=== PATIENT | female | born 1935 | race Caucasian/White ===

== ENCOUNTER 2020-05-25 13:30 | Observation (INO) | payer MEDICARE, MEDICAID, SELFPAY ==
[2020-05-25] VITALS (33 sets, daily range): BP systolic 116–156; BP diastolic 60–104; PULSE 61–82; RESP 12–30; TEMP 36.2–36.4; O2SAT 94–100; BMI 25.7
--- NOTE | ~2020-05-25 | CT_ITS ---
EXAMINATION: CT brain wo con DATE: 05/25/2020 14:32 INDICATION: Altered mental status. TECHNIQUE: Computed tomography (CT) of the head was performed without intravenous contrast. The mA wa s adjusted according to patient size. Iterative reconstruction technique was employed. The dose-lengt h product was 605.33 mGy-cm. COMPARISON: Head CT 05/10/2017 FINDINGS: There is diffuse brain volume loss. 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 There are scattered areas of low attenuation in the cerebral white matter, which is within normal limits for t he patient's age. There is no intracranial hemorrhage, acute infarction, or abnormal intracranial mas s lesion. The ventricles are normal in size. The paranasal sinuses are clear. The mastoid air cells a re normal. There are likely changes of ocular lens replacement surgeries. IMPRESSION: 1. 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 Reviewed, dictated and finalized at location A.
--- NOTE | ~2020-05-25 | XR_ITS ---
EXAMINATION: XR chest 1V EXAM DATE: 05/25/2020 14:33 INDICATION: Transient alteration of awareness. TECHNIQUE: Portable AP frontal chest x-ray was obtained. Comparison is made to prior examination from 07/05/2013. FINDINGS: Sternotomy wires are present without findings to suggest sternal dehiscence. Cardiomegaly, new compared to previous examination. No confluent consolidation, pneumothorax or pleural effusion lester spected. There are mild bony degenerative changes. IMPRESSION: Cardiomegaly. Reviewed, dictated and finalized at location A. IMPRESSION: Cardiomegaly.
--- NOTE | 2020-05-25 14:01 | ED.AMS ---
HPI - Altered Mental Status General Chief Complaint: Altered Mental Status Stated Complaint: Altered Mental Status Time Seen by Provider: 05/25/20 13:37 Source: EMS Mode of arrival: EMS Limitations: altered mental status and dementia History of Present Illness HPI narrative: Patient is an 84-year-old female brought in by EMS due to altered mental status. Per EMS, according snf staff that the patient is more confused compared to her baseline. Patient is currently on oral antibiotics but EMS states that she has not been taking it for the past few days, spitting it up and was refusing to take, being treated for a urinary tract infection. Related Data Allergies Allergy/AdvReac Type Severity Reaction Status Date / Time No Known Allergies Allergy Unverified 12/04/19 09:33 Review of Systems Review of Systems: ROS unobtainable: Yes unobtainable due to mental status PMFSH Family History Family History Sibling Carcinoma of colon Family history of coronary artery disease Father Family history of lung cancer Social History Social History Smoking status: Never smoker Second hand tobacco smoke exposure: No Alcohol intake: current Exam Const: General: ill appearing Limitations: altered mental status (Lethargic) Other: Frail HENMT: Head: normal to inspection, normocephalic and atraumatic Ears: hearing grossly normal bilaterally, TM normal on the right and TM normal on the left General nose exam: Normal external nose present, Normal nares present and No nasal discharge present Face and sinus: normal facial exam Mouth: Yes Normal oral and palatal mucosa present, Yes lip normal, Yes tongue normal and Yes oropharynx normal Throat: posterior oropharynx normal, tonsils normal and uvula midline Eyes: General: appearance normal, both eyes and all related structures Pupils: Equal, round and reactive pupils present EOM: EOMs intact bilaterally Neck: Neck: normal visual inspection, full ROM, no lymphadenopathy and no meningeal signs Chest: Chest palpation & inspection: normal inspection of the chest Resp: Auscultation: clear to auscultation bilaterally, no crackles, no rales, no rhonchi and no wheezes Cardio: Rate: regular rate Rhythm: regular rhythm Heart sounds: Murmur heart sound present GI: Inspection: normal to inspection GI Palp: No abdominal tenderness, Yes Soft to palpation, No Tenderness to palpation present (GI), No Guarding due to palpation present (GI), No Rigid due to palpation and No Rebound tenderness present Auscultation: normal bowel sounds : General: Yes no CVA tenderness Back/Spine/Pelvis: Back: no CVA tenderness Skin: General skin exam: normal color, no rashes or lesions noted, elasticity normal and turgor normal Neuro: General: tone normal, moves all extremities, Normal light touch and pain sensation and no focal motor deficits Cranial nerves: Yes Equal, round and reactive pupils present Speech: No Abnormal speech present Sensory Exam: No Sensory deficit (Neuro) Other: Lethargic Extrem: General: normal to inspection, full ROM and capillary refill normal Psych: Appearance: grossly normal and well kempt Course Course Emergency Course: Patient examined, no change in condition still altered but this could be her baseline since she has a history of severe dementia according to daughter. Daughter even states that sometimes does not recognize me . Vital Signs Vital signs: Vital Signs Temperature 36.2 C L 05/25/20 13:41 Pulse Rate 74 05/25/20 13:41 Respiratory Rate 30 H 05/25/20 13:41 Blood Pressure 139/69 05/25/20 13:41 Pulse Oximetry 97 05/25/20 13:41 Temperature 36.2 C L 05/25/20 13:41 Pulse Rate 75 05/25/20 15:45 Respiratory Rate 20 05/25/20 15:45 Blood Pressure 130/78 05/25/20 15:01 Pulse Oximetry 100 05/25/20 15:01 MDM - Alter
[2020-05-25] MEDS: LACTATED RINGERS 1,000 ML 999 ML IV CONT (14:24)
[2020-05-25 14:27] LABS: Basophils Percent Auto 0.1 % (0.2-1.2); Eosinophils Absolute Auto 0.2 K/mm3 (0-0.3); Eosinophils Percent Auto 1.9 % (0-4.4); Hematocrit 39.6 % (37.0-47.0); Hemoglobin 12.5 g/dL (12.0-15.0); Immature Granulocyte Absolute 0.03 K/mm3 (0.00-0.031); Immature Granulocyte Percent A 0.4 % (0-0.5); Immature Platelet Fraction Pct 4.3 % (0.9-11.2); Lymphocytes Absolute Auto 1.06 K/mm3 (0.9-3.2); Lymphocytes Percent Auto 13.4 % (18.3-44.2); Mean Corpuscular HGB Conc 31.6 g/dl (32-36); Mean Corpuscular Hemoglobin 30.4 pg (26-34); Mean Corpuscular Volume 96.4 fl (80-100); Mean Platelet Volume 11.4 fl (7.4-10.4); Monocytes Absolute Auto 0.8 K/mm3 (0.1-0.6); Monocytes Percent Auto 10.3 % (2.6-8.5); Neutrophils Absolute Auto 5.8 K/mm3 (1.3-6.7); Neutrophils Percent Auto 73.9 % (45.5-73.1); Platelet Count Result 123 k/mm3 (150-375); Red Blood Count 4.11 M/mm3 (4.2-5.4); Red Cell Distribution Width 16.2 % (11.5-14.5); White Blood Count 7.9 K/mm3 (4.5-10.0)
[2020-05-25 14:46] LABS: Lactic Acid Reflex 1.5 mmol/L (0.7-2.1)
[2020-05-25 15:01] LABS: Troponin I 0.034 ng/mL (0.000-0.034)
[2020-05-25 16:05] LABS: Add Urine Microscopic? YES; Appearance Urine Cloudy (Clear); Bilirubin Urine Negative (Negative); Blood Urine Negative (Negative); Color Urine Yellow (Yellow); Glucose Urine UA Negative (Negative); Ketones Urine Negative (Negative); Leukocyte Esterase Ur Negative LEU/UL (Negative); Nitrate Urine Negative (Negative); Protein Urine 2+ mg/dL (Negative); Specific Grav Ur 1.015 (1.001-1.035)
[2020-05-25 16:16] LABS: Squamous Epithelial Cell Urine Moderate /hpf (Few); WBC Urine 0-3 /hpf (0-3)
[2020-05-25 17:36] LABS: Alanine Aminotransferase 18 U/L (4-35); Albumin Level 3.3 g/dL (3.5-5.1); Alkaline Phosphatase 70 U/L (38-126); Anion Gap 2 mmol/L (8-16); Aspartate Amino Transferase 32 U/L (14-36); Bilirubin,Total 0.8 mg/dL (0.2-1.3); Blood Urea Nitrogen 20 mg/dL (7-17); Calcium 8.4 mg/dL (8.4-10.2); Carbon Dioxide 36 mmol/L (22-30); Chloride 100 mmol/L (98-107); Estimated CRCL calculation 35 ml/min; Estimated Glomerular Filt Rate 60; Glucose 168 mg/dL (65-105); Potassium 3.9 mmol/L (3.4-5.0); Sodium 138 mmol/L (137-145)
--- NOTE | 2020-05-25 18:47 | ADMGEN ---
This patient, Sarah Wheeler, was admitted to [facility] Surg Room 332-01. Patient/family oriented to hospital policies and general routines including ID bracelet, bed and alarms, visiting hours, pain management, procedures, bathroom and other care routines, personal items, smoking policy, room service/diet, and visiting hours. Information on how to activate the Rapid Response Team has been discussed. Patient/Family are encouraged to report perceived risks to care and to ask questions if they do not understand what they are told or what they should do.
[2020-05-25] MEDS: LACTATED RINGERS 1,000 ML 90 ML IV CONT (21:16)
[2020-05-25 23:29] LABS: Glucose Point of Care 167 (65-105)
[2020-05-26] VITALS (12 sets, daily range): BP systolic 111–121; BP diastolic 66–86; PULSE 63–81; RESP 18–20; TEMP 36.3–36.7; O2SAT 93–100
--- NOTE | 2020-05-26 05:37 | PM.IMHP ---
H&P: HPI History of Present Illness Date/Time: 05/26/20 05:37 this is a 84-year-old female bed who resides at care center of [facility] and has a history of dementia. The daughters at the bedside she tells me that the patient was brought to the hospital because of shortness of breath. However the ER noted that the patient was brought here due to altered mental status. The patient was very restless and it was difficult to get patient's blood work initially. Patient recently was treated for urinary tract infection however her urinalysis looks clear. CT of the brain was read as nothing acute but just an old infarction in the left frontal lobe. Chest x-ray was read as cardiomegaly. Lactic was 1.5. The patient was started on IV fluids. Admitted to observation on 05/26/2020. Chief Complaint: ams Review of Systems Review of Systems: All systems reviewed & are unremarkable except as noted in HPI and below Constitutional: Constitutional: Reports as per HPI and Reports no additional constitutional complaints Eyes: Eyes: Reports as per HPI and Reports no additional eye complaints ENT: Reports system reviewed and no additional complaints, except as documented and Reports Normal hearing present Cardiovascular: Cardiovascular: Reports no additional cardiovascular complaints Respiratory: Respiratory: Reports no additional respiratory complaints and Reports no additional respiratory complaints Gastrointestinal: Gastrointestinal: Reports as per HPI and Reports no additional gastrointestinal complaints Musculoskeletal: Musculoskeletal: Reports no additional musculoskeletal complaints Integumentary/Breasts: Skin/Breast: Reports system reviewed and no additional complaints, except as docu and Reports as per HPI Neurologic: Reports system reviewed and no additional complaints, except as documented, Reports as per HPI and Reports Normal hearing present Psychiatric: Psychiatric: Reports no additional psychiatric complaints and Reports as per HPI Endocrine: Endocrine: Reports no additional endocrine complaints Hematologic/Lymphatic: Hematologic/Lymphatic: Reports no additional hematologic/lymphatic complaints Allergic/Immunologic: Allergic/Immunologic: Reports no additional allergic/immunologic complaints [facility] Past Medical History Medical History (Updated 05/26/20 @ 06:27 by Oly Bridges NP) Congestive heart failure Dementia DM2 (diabetes mellitus, type 2) Glaucoma Hypertension Surgical History Surgical History (Updated 05/26/20 @ 06:14 by Oly Bridges NP) S/P CABG x 4 Family History Family History Sibling Carcinoma of colon Family history of coronary artery disease Father Family history of lung cancer Social History Social History Smoking status: Never smoker Second hand tobacco smoke exposure: No Alcohol intake: never Substance use: never Gender identity (if verbalized by the patient): Female Sexual Orientation (if Verbalized by the Patient): Straight or Heterosexual Spiritual care concerns: No Meds Home Medications and Allergies Home Medications Medication Instructions Recorded Confirmed Type Aspir-81 81 mg PO DAILY 05/25/20 05/25/20 History Ca sldu-L6-gcfokd-inos-silicon 1,000 tablet PO HS 05/25/20 05/25/20 History [Bone Density Calcium + D] Enzyme Digest 3,000 mg PO HS 05/25/20 05/25/20 History PhytoMulti 1 tablet PO TID 05/25/20 05/25/20 History Probiotic 420 mg BYMOUTH BID 05/25/20 05/25/20 History brimonidine 1 drp EACH EYE BID 05/25/20 05/25/20 History carvedilol 6.25 mg PO DAILY 05/25/20 05/25/20 History co T30-qsml oil-omega 3-E 1,000 mg PO HS 05/25/20 05/25/20 History donepezil 10 mg PO HS 05/25/20 05/25/20 History latanoprost 1 drp EACH EYE HS 05/25/20 05/25/20 History timolol maleate 1 drp EACH EYE BID 05/25/20 05/25/20 History Allergies Allergy/AdvReac Type
--- NOTE | 2020-05-26 10:33 | WPDNEURCNPN ---
Assessment and Plan Assessment and plan (1) Dementia: Code(s): F03.90 - Unspecified dementia without behavioral disturbance Status: Chronic Additional Plan progressive dementia, with family's desire not to do any major intervention and even otherwise patient carries the instruction of DNR, receiving hydration in addition she has underlying medical problem as well, routine labs not significant and CT scan documented only left frontal lobe old stroke, she will benefit from the supportive care but if any question arises I am available to discuss Consult date: 05/26/20 Time Seen: 10:00 HPI: Sarah Wheeler is a 84 year old female admitted to the hospital with the ongoing history of 1. Dementia 2. Increasing difficulties in breathing along with the change in the mental status 3. Recent history of UTI 4. History of cardiomegaly 5. Diabetes mellitus 6. Glaucoma and 7. Hypertension 8. History of CABG x4 Review of Systems Review of Systems: All systems reviewed & are unremarkable except as noted in HPI and below PMFSH Past Medical History Medical History Congestive heart failure Dementia DM2 (diabetes mellitus, type 2) Glaucoma Hypertension Surgical History Surgical History S/P CABG x 4 Family History Family History Sibling Carcinoma of colon Family history of coronary artery disease Father Family history of lung cancer Social History Social History Smoking status: Never smoker Second hand tobacco smoke exposure: No Alcohol intake: never Substance use: never Gender identity (if verbalized by the patient): Female Sexual Orientation (if Verbalized by the Patient): Straight or Heterosexual Spiritual care concerns: No Meds Home Medications and Allergies Home Medications Medication Instructions Recorded Confirmed Type Aspir-81 81 mg PO DAILY 05/25/20 05/25/20 History Ca pasm-R8-mdrbvl-inos-silicon 1,000 tablet PO HS 05/25/20 05/25/20 History [Bone Density Calcium + D] Enzyme Digest 3,000 mg PO HS 05/25/20 05/25/20 History PhytoMulti 1 tablet PO TID 05/25/20 05/25/20 History Probiotic 420 mg BYMOUTH BID 05/25/20 05/25/20 History brimonidine 1 drp EACH EYE BID 05/25/20 05/25/20 History carvedilol 6.25 mg PO DAILY 05/25/20 05/25/20 History co R96-fwin oil-omega 3-E 1,000 mg PO HS 05/25/20 05/25/20 History donepezil 10 mg PO HS 05/25/20 05/25/20 History latanoprost 1 drp EACH EYE HS 05/25/20 05/25/20 History timolol maleate 1 drp EACH EYE BID 05/25/20 05/25/20 History Allergies Allergy/AdvReac Type Severity Reaction Status Date / Time No Known Allergies Allergy Unverified 12/04/19 09:33 Vital Signs Vital Signs - 24 hr 05/25/20 13:41 05/25/20 13:46 05/25/20 13:49 Temperature 36.2 C L Pulse Rate 74 74 61 Respiratory Rate 30 H 12 24 H Blood Pressure 139/69 Pulse Oximetry 97 96 05/25/20 14:00 05/25/20 14:01 05/25/20 14:15 Temperature Pulse Rate 71 71 76 Respiratory Rate 22 H 22 H 22 H Blood Pressure 133/60 Pulse Oximetry 96 95 05/25/20 14:36 05/25/20 14:45 05/25/20 15:00 Temperature Pulse Rate 72 71 74 Respiratory Rate 22 H 23 H 22 H Blood Pressure Pulse Oximetry 97 99 05/25/20 15:01 05/25/20 15:15 05/25/20 15:30 Temperature Pulse Rate 74 77 77 Respiratory Rate 24 H 22 H 19 Blood Pressure 130/78 Pulse Oximetry 100 05/25/20 15:45 05/25/20 16:00 05/25/20 16:01 Temperature Pulse Rate 75 81 80 Respiratory Rate 20 18 17 Blood Pressure 146/104 H Pulse Oximetry 98 05/25/20 16:15 05/25/20 16:31 05/25/20 16:32 Temperature Pulse Rate 77 73 74 Respiratory Rate 23 H 22 H 22 H Blood Pressure 149/68 H Pulse Oximetry 98 98 94 05/25/20 17:00 05/25/20 17:01 05/25/20 17:02 Temperature Pulse Rate 74 74 74 Respi
[2020-05-26] MEDS: ASPIRIN 81 MG ENTERIC TABLET PO (11:25)
[2020-05-26] MEDS: carvediloL 6.25 MG TABLET PO (11:26)
[2020-05-26] MEDS: BRIMONIDINE TARTRATE 0.2% OP SOLN 5 ML BTL 1 DROP EACH EYE (11:26)
[2020-05-26] MEDS: TIMOLOL MALEATE 0.5% OP SOLN 5 ML BOTTLE 1 DROP EACH EYE (11:27)
[2020-05-26 11:47] LABS: Glucose Point of Care 172 (65-105)
--- NOTE | 2020-05-26 16:09 | PM.IMPN ---
Progress Note: A&P Assessment and Plan (1) Altered mental status: Qualifiers: Altered mental status type: unspecified Qualified Code(s): R41.82 - Altered mental status, unspecified Code(s): R41.82 - Altered mental status, unspecified Status: Acute Assessment and Plan: The patient does have end-stage dementia. The patient is talking inappropriately. She recently was treated for urinary tract infection and her urine saw clear now. The daughters at the bedside. The daughter stated that her sister is a chiropractor doctor and does not want any new medications prescribed and listed as ran through her 1st. The patient is a DNR. The patient is at the her baseline according to the daughter. ER had empirically started IV fluids on the patient thinking that she was dehydrated prior to even getting any labs. Patient's BUN is 20 and her creatinine is normal. Patient complains of having discomfort with my mild touch. The daughter stated that she would appreciated neurology consult. However she does not want any new medications prescribed illicits ran through the chiropractor daughter. The CT of the brain shows old infarction but nothing new. 05/26/20 16:09 Patient is a 4-year-old female reside at [facility] sent to emergency department for further evaluation his patient was more confused and there was a concern the patient may have shortness of breath, unfortunately patient is not able to provide any review of symptom is quite somnolent, chest x-ray shows cardiomegaly but no pulmonary edema or infiltrate, patient clinically stable and room, I spoke with the patient great detail, and answered all her questions, the considering possible hospice care, and further recommendation to follow (2) Congestive heart failure: Code(s): I50.9 - Heart failure, unspecified Status: Chronic Assessment and Plan: Continue with patient's current medication. However the patient may have gotten fluid overload with the IV fluids that she had infusing through the night. Her chest x-ray shows cardiomegaly. Continue with Coreg. The patient was placed on oxygen at 2 L per nasal cannula for comfort measures only. Patient's CO2 was mildly elevated on her lab work. No ABGs were performed at this time. It was felt that the patient would not tolerate ABGs at this time. (3) Hypertension: Code(s): I10 - Essential (primary) hypertension Status: Chronic Assessment and Plan: Continue with patient's Coreg (4) Dementia: Code(s): F03.90 - Unspecified dementia without behavioral disturbance Status: Chronic Assessment and Plan: Patient is given multiple supplements per the chiropractor. Continue with done alejo [place]. (5) DM2 (diabetes mellitus, type 2): Code(s): E11.9 - Type 2 diabetes mellitus without complications Status: Chronic Assessment and Plan: For 1 I understand the patient is diet controlled. However her blood sugars are in the 100s. The daughters are very particular about what she takes for supplements and eats a drinks. Accu-Cheks AC and HS. Check A1c when available. (6) Glaucoma: Code(s): H40.9 - Unspecified glaucoma Status: Chronic Assessment and Plan: Continue with eye drops. Latanoprost Subjective Date/time seen: 05/26/20 16:09 Patient is a 4-year-old female [facility] to emergency department for further evaluation his patient was more confused and there was a concern the patient may have shortness of breath, unfortunately patient is not able to provide any review of symptom is quite somnolent, chest x-ray shows cardiomegaly but no pulmonary edema or infiltrate, patient clinically stable and room, I spoke with the patient great detail, and answered all her questions, the considering possible hospice care, and further recommendation to follow Review of Systems Review of Systems: ROS unobtainable: Yes unobtainable d
[2020-05-26 17:24] LABS: Glucose Point of Care 214 (65-105)
[2020-05-26] MEDS: INSULIN ASPART (*BKC) 100 UNITS/ML SUB-Q (17:28)
[2020-05-27] VITALS (7 sets, daily range): PULSE 72–80; RESP 16; TEMP 36.6; O2SAT 96–97
[2020-05-27 08:01] LABS: Glucose Point of Care 149 (65-105)
[2020-05-27] MEDS: ASPIRIN 81 MG ENTERIC TABLET PO (09:53)
[2020-05-27] MEDS: BRIMONIDINE TARTRATE 0.2% OP SOLN 5 ML BTL 1 DROP EACH EYE (09:53)
[2020-05-27] MEDS: TIMOLOL MALEATE 0.5% OP SOLN 5 ML BOTTLE 1 DROP EACH EYE (09:53)
[2020-05-27] MEDS: carvediloL 6.25 MG TABLET PO (09:54)
--- NOTE | 2020-05-27 10:17 | PM.DS ---
DS: Admitting Diagnosis Admitting Diagnosis Admitting Diagnosis: AMS DS: Discharge Diagnosis Discharge Diagnosis (1) Altered mental status: Qualifiers: Altered mental status type: unspecified Qualified Code(s): R41.82 - Altered mental status, unspecified Code(s): R41.82 - Altered mental status, unspecified Status: Acute Assessment and Plan: The patient does have end-stage dementia. The patient is talking inappropriately. She recently was treated for urinary tract infection and her urine saw clear now. The daughters at the bedside. The daughter stated that her sister is a chiropractor doctor and does not want any new medications prescribed and listed as ran through her 1st. The patient is a DNR. The patient is at the her baseline according to the daughter. ER had empirically started IV fluids on the patient thinking that she was dehydrated prior to even getting any labs. Patient's BUN is 20 and her creatinine is normal. Patient complains of having discomfort with my mild touch. The daughter stated that she would appreciated neurology consult. However she does not want any new medications prescribed illicits ran through the chiropractor daughter. The CT of the brain shows old infarction but nothing new. 05/26/20 16:09 Patient is a 4-year-old female reside at the [facility] sent to emergency department for further evaluation his patient was more confused and there was a concern the patient may have shortness of breath, unfortunately patient is not able to provide any review of symptom is quite somnolent, chest x-ray shows cardiomegaly but no pulmonary edema or infiltrate, patient clinically stable and room, I spoke with the patient great detail, and answered all her questions, the considering possible hospice care, and further recommendation to follow (2) Congestive heart failure: Code(s): I50.9 - Heart failure, unspecified Status: Chronic Assessment and Plan: Continue with patient's current medication. However the patient may have gotten fluid overload with the IV fluids that she had infusing through the night. Her chest x-ray shows cardiomegaly. Continue with Coreg. The patient was placed on oxygen at 2 L per nasal cannula for comfort measures only. Patient's CO2 was mildly elevated on her lab work. No ABGs were performed at this time. It was felt that the patient would not tolerate ABGs at this time. (3) Hypertension: Code(s): I10 - Essential (primary) hypertension Status: Chronic Assessment and Plan: Continue with patient's Coreg (4) Dementia: Code(s): F03.90 - Unspecified dementia without behavioral disturbance Status: Chronic Assessment and Plan: Patient is given multiple supplements per the chiropractor. Continue with done pes [place]. (5) DM2 (diabetes mellitus, type 2): Code(s): E11.9 - Type 2 diabetes mellitus without complications Status: Chronic Assessment and Plan: For 1 I understand the patient is diet controlled. However her blood sugars are in the 100s. The daughters are very particular about what she takes for supplements and eats a drinks. Accu-Cheks AC and HS. Check A1c when available. (6) Glaucoma: Code(s): H40.9 - Unspecified glaucoma Status: Chronic Assessment and Plan: Continue with eye drops. Latanoprost DS: Summary Hospital Course Reason for hospitalization: this is a 84-year-old female bed who resides at care center of [facility] and has a history of dementia. The daughters at the bedside she tells me that the patient was brought to the hospital because of shortness of breath. However the ER noted that the patient was brought here due to altered mental status. The patient was very restless and it was difficult to get patient's blood work initially. Patient recently was treated for urinary tract infection however her urinalysis looks clear. CT of the brain was read as noth
[2020-05-27 11:53] LABS: Glucose Point of Care 189 (65-105)
[2020-05-27 21:08] LABS: SARS-CoV-2 RNA PCR Negative
== END 2020-05-27 12:55 | disposition hospice, home (50) ==
LOC: ANHED 16:41 → ANH3MEDSUR 17:39
PROVIDERS: Admitting Provider Family Medicine; Emergency Provider Emergency Medicine; PCP Family Medicine; Visit Provider Family Medicine
DX: R41.82 Altered mental status, unspecified (principal); F03.90 Unspecified dementia, unspecified severity, without behavioral disturbance, psychotic disturbance, mood disturbance, and anxiety; I11.0 Hypertensive heart disease with heart failure; I50.9 Heart failure, unspecified; E11.9 Type 2 diabetes mellitus without complications; Z66 Do not resuscitate; Z20.822 Contact with and (suspected) exposure to COVID-19; Z95.1 Presence of aortocoronary bypass graft
CPT/HCPCS: 36415; 51701; 70450; 71045; 80053; 81001; 82948; 83605; 84484; 85025; 85055; 96361; 96365; 99285; A9270; C9803; G0378; J0696; J1815; J7120; U0003; U0005